=== PATIENT | female | born 1950 | race Two or more races ===

== ENCOUNTER 2022-09-01 14:51 | Inpatient (IN) | payer OTHER, MEDICAID ==
[~2022-09-01] VITALS: Ht 154.9 cm; Wt 68.9 kg
[2022-09-01 15:38] LABS: Basophils # (auto) 0 10 ^3/uL (0-0.2); Basophils % (auto) 0.3 % (0.0-2.0); Eosinophils # (auto) 0.2 10 ^3/uL (0-0.8); Eosinophils % (auto) 1.4 % (0.0-7.0); Hematocrit 43.5 % (36.0-46.0); Lymphocytes # (auto) 2.1 10 ^3/uL (0.4-5.4); Lymphocytes % (auto) 16.4 % (10.0-50.0); Mean Corpuscular Hemoglobin 31.1 pg (28.0-32.0); Mean Corpuscular Hgb Conc. 34.5 g/dL (32.0-36.0); Mean Corpuscular Volume 90.2 fL (80.0-100.0); Monocytes # (auto) 0.7 10 ^3/uL (0-1.3); Monocytes % (auto) 5.2 % (0.0-12.0); Neutrophils # (auto) 9.8 10 ^3/uL (1.6-8.6); Neutrophils % (auto) 76.7 % (37.0-80.0); Nucleated Red Blood Cells % 0.2 %; Red Blood Cells 4.83 10^6/uL (4.0-5.20); Red Cell Distribution Width 13.1 % (11.8-14.3); White Blood Cell 12.8 10^3/uL (4.4-10.8)
[2022-09-01 15:50] LABS: Albumin 3.6 g/dL (3.4-5.0); Calcium 9.5 mg/dL (8.5-10.1); Potassium 3.9 mmol/L (3.5-5.1)
[2022-09-01 15:52] LABS: BUN/Creatinine Ratio 19.1
[2022-09-01 15:55] LABS: Bilirubin, Total 0.5 mg/dL (0.2-1.0); Total Protein 7.9 g/dL (6.4-8.2)
[2022-09-01 16:09] LABS: Urine Bacteria FEW /hpf (None Seen); Urine Blood Negative /uL (Negative); Urine Hyaline Cast FEW /lpf (0 - 2); Urine Specific Gravity 1.015 (1.001-1.035); Urine WBC 2 /hpf (0 - 5)
[2022-09-01] MEDS ORDERED: cefTRIAXone 1GM/50ML D5W 50 ML IV ONE (16:15)
[2022-09-01] MEDS ORDERED: metroNIDAZOLE 500MG/100ML 100 ML IV ONE (16:15)
[2022-09-01] MEDS ORDERED: NITROGLYCERIN 0.4 MG SL TAB SL PRN (18:30)
[2022-09-01] MEDS ORDERED: MORPHINE SULFATE INJ 2 MG/ml SYRG IV PRN ×2 (18:30)
[2022-09-01] MEDS ORDERED: DEXTROSE (50%) 50ML SYRG IV PRN (18:30)
[2022-09-01] MEDS ORDERED: HYDROcodone-ACET 5/325MG TAB PO PRN (18:30)
[2022-09-01] MEDS ORDERED: DOCUSATE SOD 100 MG CAP PO PRN (18:30)
[2022-09-01] MEDS: SODIUM CHLORIDE 0.9% 1,000 ML IV SCH (20:13)
[2022-09-01] MEDS: InsuLIN REG 1unit/0.01ml Soln (100units/ml) SC SCH (22:00)
[2022-09-01] MEDS: ACCU-CHEK COMFORT CURVE STRIP VI SCH (23:41)
[2022-09-02] MEDS: metroNIDAZOLE 500MG/100ML 100 ML IV SCH ×4 (00:09→23:48)
[2022-09-02] MEDS: hydrALAZINE HCL 20 MG/ML VL IV PRN ×2 (03:05→22:14)
[2022-09-02 05:55] LABS: Basophils # (auto) 0 10 ^3/uL (0-0.2); Basophils % (auto) 0.3 % (0.0-2.0); Eosinophils # (auto) 0.2 10 ^3/uL (0-0.8); Eosinophils % (auto) 2.3 % (0.0-7.0); Hematocrit 38.4 % (36.0-46.0); Hemoglobin 13.7 g/dL (12.2-16.2); Lymphocytes # (auto) 2.3 10 ^3/uL (0.4-5.4); Lymphocytes % (auto) 24.4 % (10.0-50.0); Mean Corpuscular Hemoglobin 32.2 pg (28.0-32.0); Mean Corpuscular Hgb Conc. 35.6 g/dL (32.0-36.0); Mean Corpuscular Volume 90.5 fL (80.0-100.0); Monocytes # (auto) 0.7 10 ^3/uL (0-1.3); Neutrophils # (auto) 6.2 10 ^3/uL (1.6-8.6); Nucleated Red Blood Cells % 0.8 %; Red Blood Cells 4.24 10^6/uL (4.0-5.20); White Blood Cell 9.4 10^3/uL (4.4-10.8)
[2022-09-02 06:17] LABS: Potassium 3.6 mmol/L (3.5-5.1)
[2022-09-02 06:26] LABS: BUN/Creatinine Ratio 18.6; Bilirubin, Total 0.5 mg/dL (0.2-1.0); Calcium 8.5 mg/dL (8.5-10.1); Total Protein 6.9 g/dL (6.4-8.2)
[2022-09-02] MEDS: ONDANSETRON HCL 4 MG/2 ML VIAL IV PRN (06:30)
[2022-09-02] MEDS: InsuLIN REG 1unit/0.01ml Soln (100units/ml) SC SCH ×4 (07:00→22:00)
[2022-09-02] MEDS: ACCU-CHEK COMFORT CURVE STRIP VI SCH ×4 (07:16→22:09)
[2022-09-02] MEDS: cefTRIAXone 1GM/50ML D5W 50 ML IV SCH (10:19)
[2022-09-02] MEDS: PANTOPRAZOLE 40 MG/10 ML VIAL INJ IV SCH (10:19)
[2022-09-02] MEDS: SODIUM CHLORIDE 0.9% 1,000 ML IV SCH (11:46)
[2022-09-02] MEDS: ACETAMINOPHEN 325 MG TAB PO PRN (17:38)
[2022-09-02 23:08] VITALS: BP 176/44
[2022-09-02] MEDS ORDERED: LEVO75TA6 PO (23:57)
[2022-09-02] MEDS ORDERED: METF-370 PO (23:57)
[2022-09-02] MEDS ORDERED: LOSA-39 PO (23:57)
[2022-09-02] MEDS ORDERED: FENO160T8 PO (23:57)
[2022-09-03] MEDS: SODIUM CHLORIDE 0.9% 1,000 ML IV SCH (03:44)
[2022-09-03] MEDS: hydrALAZINE HCL 20 MG/ML VL IV PRN ×3 (04:56→21:35)
[2022-09-03 05:00] VITALS: BP 167/72
[2022-09-03 06:06] LABS: Basophils # (auto) 0.1 10 ^3/uL (0-0.2); Basophils % (auto) 0.7 % (0.0-2.0); Eosinophils # (auto) 0.5 10 ^3/uL (0-0.8); Eosinophils % (auto) 4.5 % (0.0-7.0); Hematocrit 39.6 % (36.0-46.0); Hemoglobin 13.9 g/dL (12.2-16.2); Lymphocytes # (auto) 2.8 10 ^3/uL (0.4-5.4); Lymphocytes % (auto) 24.4 % (10.0-50.0); Mean Corpuscular Hemoglobin 32.3 pg (28.0-32.0); Mean Corpuscular Hgb Conc. 35.2 g/dL (32.0-36.0); Mean Corpuscular Volume 91.8 fL (80.0-100.0); Monocytes # (auto) 0.6 10 ^3/uL (0-1.3); Monocytes % (auto) 5.3 % (0.0-12.0); Neutrophils # (auto) 7.4 10 ^3/uL (1.6-8.6); Neutrophils % (auto) 65.1 % (37.0-80.0); Nucleated Red Blood Cells % 0.2 %; Red Blood Cells 4.32 10^6/uL (4.0-5.20); Red Cell Distribution Width 13.1 % (11.8-14.3); White Blood Cell 11.3 10^3/uL (4.4-10.8)
[2022-09-03] MEDS: ACCU-CHEK COMFORT CURVE STRIP VI SCH ×4 (06:24→21:34)
[2022-09-03] MEDS: InsuLIN REG 1unit/0.01ml Soln (100units/ml) SC SCH ×4 (06:24→21:36)
[2022-09-03] MEDS: metroNIDAZOLE 500MG/100ML 100 ML IV SCH ×3 (07:54→23:25)
[2022-09-03 08:00] VITALS: BP 138/64
[2022-09-03 09:00] VITALS: BP 138/64
[2022-09-03] MEDS: PANTOPRAZOLE 40 MG/10 ML VIAL INJ IV SCH (09:01)
[2022-09-03] MEDS: cefTRIAXone 1GM/50ML D5W 50 ML IV SCH (09:01)
[2022-09-03 13:00] VITALS: BP 137/86
[2022-09-03 22:00] VITALS: BP 160/62
[2022-09-04] MEDS: ONDANSETRON HCL 4 MG/2 ML VIAL IV PRN (03:27)
[2022-09-04] MEDS: SODIUM CHLORIDE 0.9% 1,000 ML IV SCH ×2 (04:22→13:10)
[2022-09-04 05:00] VITALS: BP 141/54
[2022-09-04] MEDS: InsuLIN REG 1unit/0.01ml Soln (100units/ml) SC SCH ×4 (06:00→21:06)
[2022-09-04] MEDS: ACCU-CHEK COMFORT CURVE STRIP VI SCH ×4 (06:00→21:05)
[2022-09-04 08:00] VITALS: BP 142/56
[2022-09-04] MEDS: metroNIDAZOLE 500MG/100ML 100 ML IV SCH ×3 (08:57→23:34)
[2022-09-04] MEDS: cefTRIAXone 1GM/50ML D5W 50 ML IV SCH (08:57)
[2022-09-04 09:00] VITALS: BP 142/56
[2022-09-04] MEDS ORDERED: OMNIPAQUE ORAL SOLN 500ml 12mg/ml PO ONE (10:49)
[2022-09-04 13:00] VITALS: BP 150/87
[2022-09-04 17:00] VITALS: BP 164/60
[2022-09-04] MEDS: SUCRALFATE 1 GM/10 ML ORAL SUSP PO SCH ×2 (18:54→21:05)
[2022-09-04 22:00] VITALS: BP 146/52
[2022-09-05 05:00] VITALS: BP 175/53
[2022-09-05] MEDS: hydrALAZINE HCL 20 MG/ML VL IV PRN (05:11)
[2022-09-05] MEDS: SODIUM CHLORIDE 0.9% 1,000 ML IV SCH (05:59)
[2022-09-05] MEDS: ACETAMINOPHEN 325 MG TAB PO PRN (06:01)
[2022-09-05] MEDS: ACCU-CHEK COMFORT CURVE STRIP VI SCH ×2 (06:01→11:30)
[2022-09-05] MEDS: SUCRALFATE 1 GM/10 ML ORAL SUSP PO SCH ×2 (06:01→12:16)
[2022-09-05] MEDS: InsuLIN REG 1unit/0.01ml Soln (100units/ml) SC SCH ×2 (06:01→11:30)
[2022-09-05 08:00] VITALS: BP 142/51
[2022-09-05] MEDS: metroNIDAZOLE 500MG/100ML 100 ML IV SCH (08:36)
[2022-09-05 09:00] VITALS: BP 142/51
[2022-09-05] MEDS: cefTRIAXone 1GM/50ML D5W 50 ML IV SCH (09:36)
[2022-09-05] MEDS ORDERED: PANTOPRAZOLE 40 MG TAB PO SCH (10:00)
[2022-09-05] MEDS ORDERED: AMOX-277 PO (12:20)
[2022-09-05 13:00] VITALS: BP 176/63
[2022-09-05 15:14] VITALS: BP 146/63
== END 2022-09-05 16:00 | disposition home or self-care (01) | DRG 392 ==
LOC: ER 14:51 → TELE 18:30 → TELE-CENTR 09-02 21:36
PROVIDERS: ADMIT Nurse Practitioner Family; ATTEND Internal Medicine
DX: R10.9 Unspecified abdominal pain (principal); N39.0 Urinary tract infection, site not specified; E11.9 Type 2 diabetes mellitus without complications; E78.5 Hyperlipidemia, unspecified; I10 Essential (primary) hypertension; D72.829 Elevated white blood cell count, unspecified; E88.09 Other disorders of plasma-protein metabolism, not elsewhere classified; Z20.822 Contact with and (suspected) exposure to COVID-19; E66.01 Morbid (severe) obesity due to excess calories; K44.9 Diaphragmatic hernia without obstruction or gangrene; Z68.28 Body mass index [BMI] 28.0-28.9, adult; Z90.49 Acquired absence of other specified parts of digestive tract; N28.1 Cyst of kidney, acquired
CPT/HCPCS: 36415; 74176; 74177; 76705; 80053; 81001; 82962; 83605; 84484; 85025; 87040; 87086; 87426; 93005; 96365; 96368; 97110; 97116; 97163; C9113; G0378; J0696; J1815; J2405; J3490

== ENCOUNTER 2024-12-12 10:53 | Emergency (ER) | payer OTHER, MEDICAID ==
[~2024-12-12] VITALS: Ht 144.8 cm; Wt 64.2 kg
[~2024-12-12 10:53] MED LIST: AMOX875T4 PO; FENO160T PO; LEVO75TA6 PO; LOSA-535 PO
[2024-12-12 11:44] LABS: Basophils # (auto) 0 10 ^3/uL (0-0.2); Basophils % (auto) 0.6 % (0.0-2.0); Eosinophils # (auto) 0.2 10 ^3/uL (0-0.8); Eosinophils % (auto) 3.2 % (0.0-7.0); Hematocrit 41.7 % (36.0-46.0); Hemoglobin 14.5 g/dL (12.2-16.2); Mean Corpuscular Hemoglobin 31.1 pg (28.0-32.0); Mean Corpuscular Hgb Conc. 34.8 g/dL (32.0-36.0); Mean Corpuscular Volume 89.3 fL (80.0-100.0); Monocytes # (auto) 0.4 10 ^3/uL (0-1.3); Monocytes % (auto) 5.4 % (0.0-12.0); Neutrophils # (auto) 4.9 10 ^3/uL (1.6-8.6); Neutrophils % (auto) 64.8 % (37.0-80.0); Platelet Count (auto) 210 10^3/uL (140-450); Red Blood Cells 4.67 10^6/uL (4.0-5.20); Red Cell Distribution Width 13.6 % (11.8-14.3); White Blood Cell 7.6 10^3/uL (4.4-10.8)
[2024-12-12 12:01] LABS: Alanine Aminotransferase 14 U/L (7-40); Alkaline Phosphatase 84 U/L (46-116); Anion Gap 12 (5-15); Aspartate Aminotransferase 22 U/L (13-40); BUN/Creatinine Ratio 14.3 (10.0-20.0); Bilirubin, Total 0.4 mg/dL (0.2-1.0); Blood Urea Nitrogen 13 mg/dL (9-23); Carbon Dioxide 21 mmol/L (20-31); Chloride 93 mmol/L (98-107); Glucose 292 mg/dL (74-106); Lipase 93 U/L (12-53); Potassium 4.1 mmol/L (3.5-5.1); Sodium 126 mmol/L (136-145); Total Protein 7.3 g/dL (5.7-8.2)
[2024-12-12 12:11] LABS: Urine Bacteria FEW /hpf (None Seen); Urine Blood Negative /uL (Negative); Urine Clarity Clear (Clear); Urine Color Light-Yellow (Yellow); Urine Protein, UAD 2+ (Negative); Urine Specific Gravity 1.015 (1.001-1.035); Urine Squamous Epithelial Cell FEW /hpf (<5); Urine Urobilinogen Normal (Negative); Urine WBC 4 /HPF (0-5)
--- NOTE | 2024-12-12 12:14 | ED.PDOC ---
GI ASSESSMENT HPI Comments 74y F who presents to the ED for chief complaint of abdominal pain. Pt states she has been having LUQ abdominal pain for the past 1 week. Pt states the pain is constant, with no noted exacerbating or relieving factors. Pt has associated nausea but denies any other symptoms. Pt states she has history of DM and is often noncompliant with her medications and states has not taken her DM meds in the past 1 week. Pt otherwise has previously been hospitalized for DM management. Chief Complaint: Abdominal Pain Time Seen by MD: 12:11 Primary Care Provider: YASMINK Reviewed Notes: Medications, Allergies Allergies: Coded Allergies: NO KNOWN ALLERGIES (Unverified , 09/01/22) Home Meds Active Scripts Amoxicillin & Pot Clavulanate (Amoxicillin/Potassium Cla) 875 Mg Tab, 875 MG PO BID for 3 Days, #6 TAB Prov:STEVE RONDON MD 09/05/22 Reported Medications Fenofibrate (Fenofibrate) 160 Mg Tab, 1 TAB PO DAILY 09/02/22 Losartan Potassium (Losartan Potassium) 100 Mg Tab, 1 TAB PO DAILY 09/02/22 Levothyroxine Sodium (Levothyroxine Sodium) 75 Mcg Tab, 1 TAB PO DAILY 09/02/22 Information Source: Patient Mode of Arrival: Ambulatory Brought in by: self Past Medical History PAST MEDICAL HISTORY: DM, HTN Surgical History: Cholecystectomy DOCTOR OF PHARMACY History: Denies all DOCTOR OF PHARMACY Hx Family History Family History: Reviewed,noncontributory to illness Social History Smoker: Non-Smoker Alcohol: Denies ETOH Use Drugs: Denies Drug Use Lives In: Home Constitutional: denies: chills, diaphoresis, fatigue, fever, malaise, sweats, weakness, others EENTM: denies: blurred vision, double vision, ear bleeding, ear discharge, ear drainage, ear pain, ear ringing, eye pain, eye redness, hearing loss, mouth pain, mouth swelling, nasal discharge, nose bleeding, nose congestion, nose pain, photophobia, tearing, throat pain, throat swelling, voice changes, others Respiratory: denies: cough, hemoptysis, orthopnea, SOB at rest, shortness of breath, SOB with excertion, stridor, wheezing, others Cardiovascular: denies: chest pain, dizzy spells, diaphoresis, Dyspnea on exertion, edema, irregular heart beat, left arm pain, lightheadedness, palpitations, PND, syncope, others Gastrointestinal: reports: abdominal pain, nausea; denies: abdomen distended, blood streaked bowels, constipated, diarrhea, dysphagia, difficulty swallowing, hematemesis, melena, poor appetite, poor fluid intake, rectal bleeding, rectal pain, vomiting, others Genitourinary: denies: abnormal vagina bleeding, burning, dyspareunia, dysuria, flank pain, frequency, hematuria, incontinence, pain, , vagina discharge, urgency, others Neurological: denies: dizziness, fainting, headache, left sided numbness, left sided weakness, numbness, paresthesia, pre-existing deficit, right sided numbness, right sided weakness, seizure, speech problems, tingling, tremors, weakness, others Musculoskeletal: denies: back pain, gout, joint pain, joint swelling, muscle pain, muscle stiffness, neck pain, others Integumetry: denies: bruises, change in color, change in hair/nails, dryness, laceration, lesions, lumps, rash, wounds, others Allergic/Immunocompromised: denies: Difficulty Healing, Frequent Infections, Hives, Itching, others Hematologic/Lymphatic: denies: anemia, blood clots, easy bleeding, easy bruising, swollen glands, others Endocrine: denies: excessive hunger, excessive sweating, excessive thirst, excessive urination, flushing, intolerance to cold, intolerance to heat, unexplained weight gain, unexplained weight loss, others Psychiatric: denies: anxiety, bipolar disorder, depression, hopeless, panic disorder, schizophrenia, sleepless, suicidal, others All Other Systems: Reviewed and Negative Physical Exam General Appearance: No Apparent Distress, Normal HEENT: Normal ENT Inspection, Pharynx Normal, TMs Normal Neck: Full Range of Motion, Non-Tender, Normal, Normal Inspection Respiratory: Chest Non-Tender, Lungs Clear, No Accessory Muscle Use, No Respiratory Distress, Normal Breath Sounds Cardiovascular: No Edema, No JVD, No Murmur, No Gallop, Normal Peripheral Pulses, Regular Rate/Rhythm Breast Exam: Deferred Gastrointestinal: Tenderness (minimal tenderness to LUQ) Genitalia: Deferred Pelvic: Deferred Rectal: Deferred Extremities: No calf tenderness, Normal capillary refill, Normal inspection, Normal range of motion, Non-tender, No pedal edema Musculoskeletal : Apperance: Normal Neurologic: Alert, business development II-XII nml as Tested, No Motor Deficits, Normal Affect, Normal Mood, No Sensory Deficits Cerebellar Function: Normal Reflexes: Normal Skin: Dry, Normal Color, Warm Lymphatic: No Adenopathy Was a procedure done? Was a procedure done?: No GI differential Dx Differential Diagnosis: Cholecystitis, Gastritis/PUD, Gastroenteritis, Pancreatitis, Dehydration, Electrolyte Imbalance Other Differential Diagnosis uncontrolled DM X-Ray, Labs, Meds, VS Vital Signs Date Time Temp Pulse Resp B/P (MAP) Pulse Ox O2 Delivery O2 Flow Rate FiO2 12/12/24 11:30 98.8 81 16 170/69 (102) 94 98.8 Lab Test 12/12/24 11:41 12/12/24 11:38 12/12/24 11:30 Range/Units POC Glucose 283 H 70-106 mg/dl Urine Color Light-yellow Yellow Urine Clarity Clear Clear Urine pH 6.0 5.0-9.0 Urine Specific Colbert 1.015 1.001-1.035 Urine Protein 2+ H Negative Urine Ketones Negative Negative Urine Blood Negative Negative /uL Urine Nitrite Negative Negative Urine Bilirubin Negative Negative Urine Urobilinogen Normal Negative mg/dL Urine Leukocyte Esterase Negative Negative /uL Urine RBC 1 0 - 4 /hpf Urine Microscopic WBC 4 0-5 /HPF Urine Squamous Epithelial Cells Few <5 /hpf Urine Bacteria Few H None Seen /hpf Urine Glucose 3+ H Normal mg/dL White Blood Count 7.6 4.4-10.8 10^3/uL Red Blood Count 4.67 4.0-5.20 10^6/uL Hemoglobin 14.5 12.2-16.2 g/dL Hematocrit 41.7 36.0-46.0 % Mean Corpuscular Volume 89.3 80.0-100.0 fL Mean Corpuscular Hemoglobin 31.1 28.0-32.0 pg Mean Corpuscular Hemoglobin Concent 34.8 32.0-36.0 g/dL Red Cell Distribution Width 13.6 11.8-14.3 % Platelet Count 210 140-450 10^3/uL Mean Platelet Volume 7.7 6.9-10.8 fL Neutrophils (%) (Auto) 64.8 37.0-80.0 % Lymphocytes (%) (Auto) 26.0 10.0-50.0 % Monocytes (%) (Auto) 5.4 0.0-12.0 % Eosinophils (%) (Auto) 3.2 0.0-7.0 % Basophils (%) (Auto) 0.6 0.0-2.0 % Neutrophils # (Auto) 4.9 1.6-8.6 10 ^3/uL Lymphocytes # (Auto) 2.0 0.4-5.4 10 ^3/uL Monocytes # (Auto) 0.4 0-1.3 10 ^3/uL Eosinophils # (Auto) 0.2 0-0.8 10 ^3/uL Basophils # (Auto) 0 0-0.2 10 ^3/uL Nucleated Red Blood Cells 0.0 % Sodium Level 126 L 136-145 mmol/L Potassium Level 4.1 3.5-5.1 mmol/L Chloride Level 93 L 98-107 mmol/L Carbon Dioxide Level 21 20-31 mmol/L Anion Gap 12 5-15 Blood Urea Nitrogen 13 9-23 mg/dL Creatinine 0.91 0.550-1.02 mg/dL Glomerular Filtration Rate Calc 67 >90 mL/min BUN/Creatinine Ratio 14.3 10.0-20.0 Serum Glucose 292 H 74-106 mg/dL Calcium Level 9.0 8.7-10.4 mg/dL Total Bilirubin 0.4 0.2-1.0 mg/dL Aspartate Amino Transferase (AST) 22 13-40 U/L Alanine Aminotransferase (ALT) 14 7-40 U/L Alkaline Phosphatase 84 46-116 U/L Total Protein 7.3 5.7-8.2 g/dL Albumin 4.0 3.2-4.8 g/dL Lipase 93 H 12-53 U/L Time of 1ST Reevaluation: 12:40 Reevaluation 1ST: Unchanged Patient Education/Counseling: Diagnosis, Treatment Family Education/Counseling: No Family Present Additional Information Previous visits reviewed: The following tests were ordered, and results were reviewed by me: CT abd pelvis non-con, ua, lipase, cbc, cmp Additional Information was gathered from interviewing the following independent historians: none I reviewed and agreed with the following test results read by other providers: radiologist I discussed treatment and results with medical personnel and: patient Comprehensive systems review obtained and negative except for what is stated in the HPI. Departure 1 Departure Time of Disposition: 15:00 Impression: Primary Impression: Colitis Disposition: 01 HOME / SELF CARE / HOMELESS Condition: Good e-Prescriptions Amoxicillin & Pot Clavulanate (AUGMENTIN TABLET) 875 Mg Tb 875 MG PO BID for 7 Days, #14 TAB Prov: SAUL VEGA MD 12/12/24 Metronidazole (Flagyl) 500 Mg Tab 1 TAB PO TID, #30 TAB Prov: SAUL VEGA MD 12/12/24 Discharged With: Self, Relative Critical Care Note Critical Care Time?: No Stability Stability form required: No Heart Score Heart Score: Heart Score Response (Comments) Value History N/A 0 EKG N/A 0 Age N/A 0 Risk Factors N/A 0 Troponin N/A 0 Total 0 I personally scribed for SAUL VEGA MD ([email or web address]) on 12/12/24 at 12:14. Electronically submitted by Alo Baltazar ([email or web address]). SAUL VEGA MD December 12, 2024 12:14
--- NOTE | 2024-12-12 12:33 | DVH ---
CT CT AB PEL WO CON-NO ORAL OR IV INDICATION: abdominal pain EXAM DATE: 12/12/2024 11:45 AM COMPARISON: CT ABD PELVIS WO CONTRAST on DOS: 09/01/22 RADIATION DOSE: CTDIvol: 9.1 mGy, DLP: 469.31 mGy*cm PROCEDURE: Helical CT images were obtained of the abdomen and pelvis without IV contrast Sagittal and coronal reconstructions are provided. ORAL CONTRAST: None. ADDITIONAL IMAGES / REFORMATS: None All C T scans at this medical facility are performed using dose modulation techniques as appropriate to a p erformed exam including the following: Automated exposure control was utilized; adjustment of the MA and/or KV according to patient size; and use of iterative reconstruction technique. FINDINGS: LUNG BASE: By basilar atelectasis or scarring is seen. LIVER: Normal. GALLBLADDER AND BILIARY TREE: Cholecystectomy clips are seen.No intra- or extrahepatic biliary ductal dilation. PANCREAS: Normal. SPLEEN: Normal. BOWEL: Tubular appearance of the sigmoid colon could be seen with mild colitis. Partially visualized appendix appears normal. ADRENALS: Normal. KIDNEYS AND URETER: 2.7 cm left kidney cyst. 7 cm right upper lobe kidney cystic lesion. BLADDER: Normal. REPRODUCTIVE ORGANS: Atrophic LYMPH NODES:No lymphadenopathy. PERITONEUM: No ascites or free air. No other fluid collection. VESSELS: Scattered atherosclerotic calcifications are noted. RETROPERITONEUM: Normal. ABDOMINAL WALL: Normal. BONES: Scattered osseous degenerative changes are noted. IMPRESSION: Tubular appearance of the sigmoid colon could be seen with mild colitis.
[2024-12-12] MEDS ORDERED: METR-344 PO (15:01)
[2024-12-12] MEDS ORDERED: AUG875T PO (15:01)
[2024-12-12 15:16] VITALS: BP 177/81; PULSE 74; RESP 15; TEMP 98; O2SAT 96
== END 2024-12-12 15:18 | disposition home or self-care (01) ==
LOC: ER 10:53
DX: K52.9 Noninfective gastroenteritis and colitis, unspecified (principal); I10 Essential (primary) hypertension; E11.9 Type 2 diabetes mellitus without complications; Z79.899 Other long term (current) drug therapy; Z90.49 Acquired absence of other specified parts of digestive tract
CPT/HCPCS: 36415; 74176; 80053; 81001; 82947; 82962; 83690; 85025